=== PATIENT | male | born 1955 | race Caucasian/White ===

== ENCOUNTER 2020-10-03 15:42 | Outpatient (RCR) | payer OTHER, SELFPAY ==
--- NOTE | 2020-10-03 16:49 | HP.PTEVAL_ITS ---
Patient's Visit Information ALBERTO CASTILLO is a 64 year old M referred to Physical Therapy by Dr. Alvin Clayton DO with a diagnosis of cervical radiculopathy.. Date of Evaluation: 10/03/20 Physical Therapist: Derek Jimenez, DPT, OCS, CSCS - Visit Plan Frequency: 3x /Week Duration: 4-6 Weeks Plan: 3x/week for up to 4 weeks... 1. cervical retraction and ext exercises to reduce derangement with manual neck ROM and traction as needed adn ICT if needed. Progress to neck stretching adn strengthening of posture and neck as tolerated and acuity of pain improves. May use TENs with Mh if needed. - Subjective Started having weird tingling in fingers r hand and sporadic shoot pain in R side, that was a while ago. 2 weeks ago started with R shoulder and biceps pain. Saw doctor a week ago and started on oral steroids 2 days ago. he could not lift arm 2 days ago. but the steroid has helped. Does not like anything touching neck. Wakes up to terrible shooting pain in R UE. Today is better again with just some tingling in upper arm if he lifts it and numbness last two digits R UE. x rays shows degeneration at c6. Has not been real comfortable in about 3 weeks. Moving R UE makes him worse or touching neck. Standing and looking down is worse. 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 Crawls around alot. at work.Off work due to this. Basic ADLs are getting done now. 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 - Pain R upper arm Pain Intensity (Out of 10): 2 Pain Intensity Range: 0, 10 Comment: R neck. - Objective Posture is forward head and anterior shoulders. Tender to central c6 tissue pericervical area. reflexes 2/3 bi and tri. Sensation UE WNL to gross light touch. Strength UE 4+/5 except R triceps which is weak more due to pain than myotomal. cervical aROm ext 48, flexion full, rotation 55 L roations and 65 R rotation, SB symmetrical. Improved ext to 80 after session. Pain end range ext centrally. + c/s compressiont est in slight extension. Repeated motion: Tet: Baseline: Tightness R shoulder. protrusion. creates neck pain , P tingling and R shoulder pain. Worse. retraction: Produces neck pain during, improved ROM ext adn L rotation. retraction ext: - Goals Goal 1:: full cervical AROM without pain Goal Time Frame: 4-6 Weeks Goal 2:: Pt feel neck adn arm symptoms 90% better. Goal Time Frame: 4-6 Weeks Goal 3:: Back to normal activities without hesitation Goal Time Frame: 4-6 Weeks Goal 4:: oswestry neck 5 or better. Goal Time Frame: 4-6 Weeks - Rehabilitation Potential Physical Therapy Diagnosis: cervical radiculopathy Rehabilitation Potential: Fair - Anticipated Interventions Patient/Client Instruction: Educate patient on: Condition For the Purpose of:: To decrease pain, To increase ROM, To increase tolerance to activity/condition/position Therapeutic Exercise to Include: Strength training, Postural training, Flexibilty training, Passive ROM, Active ROM, Hanny Exercises For the Purpose of:: To decrease pain, To increase ROM, To improve muscle performance and motor function, To increase tolerance to activity/condition/p osition Manual Therapy Techniques to Include: Mobilization, Passive ROM, Soft tissue mobilization For the Purpose of:: To decrease pain, To increase ROM, To increase tolerance to activity/condition/position, To improve ability of physical actions for home/community/work/leisure TENS: Yes Thermo therapy (hot pack): Yes Intermittent cervical traction: Yes For the Purpose of:: To decrease pain, To increase ROM Thank you for the opportunity to evaluate your patient. For Medicare and Medicare HMO plans, please review the plan of care and approve it. It will need to be FAXED BACK to us at [phone] for Medicare purposes. For Medicare only, by signing this I certify the plan of care. Please let me know if there are questions or concerns regarding this plan of care. Physician Signature: Date:
--- NOTE | 2020-12-13 12:13 | HP.PTDCNRP_ITS ---
ALBERTO CASTILLO was seen in my office for initial evaluation on 10/03/20. The following Plan of Care was established for this patient: Initial Frequency: 3x /Week Initial Duration: 4-6 Weeks Patient/Client Instruction: Educate patient on: Condition For the Purpose of:: To decrease pain, To increase ROM, To increase tolerance to activity/condition/position Therapeutic Exercise to Include: Strength training, Postural training, Flexibilty training, Passive ROM, Active ROM, Hanny Exercises For the Purpose of:: To decrease pain, To increase ROM, To improve muscle performance and motor function, To increase tolerance to activ ity/condition/position Manual Therapy Techniques to Include: Mobilization, Passive ROM, Soft tissue mobilization For the Purpose of:: To decrease pain, To increase ROM, To increase tolerance to activity/condition/position, To improve ability of physical actions for home/community/work/leisure TENS: Yes Thermo therapy (hot pack): Yes Intermittent cervical traction: Yes For the Purpose of:: To decrease pain, To increase ROM This patient was last seen in our office 10/03/20. Pertinent comments regarding their Physical therapy will appear below: Pt seen one evaluationa dn plan of care established. He did not attend any of those visits. At this point, it has been over two months aadn I will discontinue due to nonattendance. At this point I will be discontinuing this patient from physical therapy. I would be happy to see this patient again in the future if found appropriate by the physician. Thank you! Derek Jimenez, DPT, OCS, CSCS Balance/Gait/Functional tests - Balance/Special Test Scores Oswestry Neck Score: 26
== END 2020-10-03 19:00 | disposition home or self-care (01) ==
LOC: PT 15:42
PROVIDERS: PCP Student in an Organized Health Care Education/Training Program; Referring Provider Student in an Organized Health Care Education/Training Program; Visit Provider Student in an Organized Health Care Education/Training Program
DX: M54.12 Radiculopathy, cervical region (principal)
CPT/HCPCS: 97110; 97162

== ENCOUNTER 2020-10-29 15:55 | Emergency (ER) | payer OTHER, SELFPAY ==
[2020-10-29] VITALS (7 sets, daily range): BP systolic 108–135; BP diastolic 62–78; PULSE 57–71; RESP 15–22; TEMP 36.7; O2SAT 96–98; BMI 28.9
--- NOTE | 2020-10-29 16:37 | EKG12_ITS ---
Test Reason : CP Blood Pressure : / mmHG Vent. Rate : 064 BPM Atrial Rate : 064 BPM P-R Int : 136 ms QRS Dur : 094 ms QT Int : 400 ms P-R-T Axes : 030 064 038 degrees QTc Int : 412 ms Normal sinus rhythm Normal ECG Confirmed by SHARI ZAPATA, KIKA ([id number]), staff editor FRED WHYTE ([id number]) on 11/01/2020 7:50:22 AM Referred By: TAVO/JUAN Confirmed By:KIKA MCCARTHY MD
--- NOTE | 2020-10-29 16:38 | EDS_ITS ---
HPI History of Present Illness Chief Complaint: Chest Pain Detail of Chief Complaint: Chest pain that started initially yesterday and was intermittent initially Informant: patient Onset/Context/Timing Onset: Yesterday Quality: Positive for Heaviness and Pressure Location: Substernal Relieved By: Nothing Associated Symptoms: Positive for Nausea Narrative Prior Similar Symptoms: No CVD Risk Factors: Positive for Hypertension and Family History 1' </=55 PE Risk Factors: Negative for Recent Travel/Surgery, Recent Immobilization and Prior DVT or PE TAD Risk Factors: Negative for Marfan's Syndrome, Hypertension and Family History PFSH PFS Medical History (Updated 10/29/20 @ 18:[address] Anna Montilla, DO) Back pain Coronary artery disease Hypertension Lyme disease Home Medications cyclobenzaprine 10 mg PO DAILY PRN PRN 02/27/14 [History Last Taken Unknown] dextroamphetamine-amphetamine [Adderall Xr 20 mg Capsule] 20 mg PO DAILY 02/27/14 [History Last Taken 02/26/14] meloxicam 15 mg PO BID PRN PRN 02/27/14 [History Last Taken Unknown] omega-3 fatty acids-fish oil [Jackson 3 Fish Oil Softgel] 1 ea PO DAILY 02/27/14 [History Last Taken Unknown] pediatric multivit 22-D3-vit K [Multivitamins Chewable Tablet] 1 ea PO DAILY 02/27/14 [History Last Taken Unknown] amlodipine 5 mg PO DAILY 10/29/20 [History Last Taken Unknown] gabapentin 100 mg PO QHS 10/29/20 [History Last Taken Unknown] Allergy/AdvReac Type Severity Reaction Status Date / Time Iodinated Contrast Media Allergy Hives Verified 10/29/20 15:56 Surgical History (Updated 10/29/20 @ 16:37 by Maira Galindo) History of cardiac catheterization Social History Smoking Status: Never smoker ROS ROS ED Review of Systems ROS Unobtainable: other Constitutional Constitutional ED: Reports lethargy; Denies chills, fever(s), sweats or weight loss Eyes Eyes: Denies blurry vision, change in vision or diplopia ENT ENT ED: Denies rhinorrhea or sore throat Cardiovascular Cardiovascular: Reports chest pain and racing heartbeat; Denies orthopnea Respiratory/Chest Respiratory/Chest: Reports dyspnea and dyspnea on exertion; Denies cough, orthopnea or sputum Gastrointestinal Gastrointestinal: Reports nausea; Denies abdominal pain, diarrhea or vomiting Genitourinary Genitourinary ED: Denies dysuria, hematuria or urinary frequency Musculoskeletal Musculoskeletal: Denies arthralgias, back pain, myalgias or neck pain Integumentary Denies abscess, Abrasions or rash Neurologic Neurologic: Denies headache(s) or weakness Psychiatric Psychiatric: Denies anxiety, depression or suicidal thoughts Endocrine Endocrinology: Denies polydipsia, polyphagia or polyuria Hematologic/Lymphatic Hematologic/Lymphatic: Denies easy bleeding, easy bruising or lymphadenopathy Allergic/Immunologic Allergic/Immunologic ED: Denies mouth swelling, tongue swelling or urticaria EXAM Physical Exam Const Vital Signs: 10/29/20 15:56 10/29/20 16:31 10/29/20 16:50 Temperature 98.1 F Temperature Source Temporal Pulse Rate 71 66 61 Respiratory Rate 15 17 Blood Pressure 135/69 H 132/62 H 133/78 H Blood Pressure Mean 91 85 Pulse Ox 97 98 Oxygen Delivery Method Room Air Room Air 10/29/20 16:51 10/29/20 16:55 10/29/20 16:59 Temperature Temperature Source Pulse Rate 68 71 Respiratory Rate Blood Pressure 133/74 H 111/69 Blood Pressure Mean Pulse Ox Oxygen Delivery Method Room Air 10/29/20 18:00 Temperature Temperature Source Pulse Rate 62 Respiratory Rate 20 H Blood Pressure 110/66 Blood Pressure Mean 80 Pulse Ox 96 Oxygen Delivery Method Room Air Positive well nourished and well developed General Appearance ED: well developed and NAD HEENT Reports TM's clear and moist mucous membranes normocephalic and atraumatic; Negative for trauma or tenderness Tympanic Membrane ED: Yes TM's clear Eyes PERRL and EOMs intact bilaterally General Eye ED: Negative for pale conjunctiva or scleral icterus Neck no lymphadenopathy, supple and no JVD General: Negative for tenderness Chest Wall inspection of chest normal and palpation of chest normal Chest: Negative for tenderness Resp normal respiratory effort and clear to auscultation bilaterally Effort and Inspection: Negative for respiratory distress or pain with movement Auscultation: Negative for rhonchi, wheezes or diminished lung sounds Cardio regular rate, regular rhythm, S1 normal heart sound, S2 normal heart sound and no murmurs Peripheral Pulses: pulses 2+ throughout GI normal to inspection, nondistended, normoactive bowel sounds, soft to palpation, non-tender, non-distended and no masses Back/Spine no CVA tenderness and no thoracic nor lumbar tenderness Extremity normal to inspection General Extremety ED: Negative for edema General Extremity: Negative for edema Neuro oriented x3, CN's II-XII intact bilaterally, no sensory deficits noted and gait normal Sensorium / Orientation: awake, alert, oriented to person, oriented to place and oriented to time Motor Exam: strength 5/5 throughout and strength abnormal Psych mental status grossly normal Skin no rashes or lesions noted and no wounds Heart Score History: Moderately Suspicious ECG: Normal Age: >45 - <65 years Risk Factors: 1 or 2 Risk Factors Troponin: </= Normal Limit Score: 3 MDM MDM MDM Narrative Medical decision making narrative: Discussed results with patient. He has a heart score of 3. Nitroglycerin did not help his pain and GI cocktail did not help his pain. He has had ongoing pain for greater than 24 hours and has a normal EKG and troponin. I feel patient is low risk for an acute coronary syndrome. Patient is in agreement. We discussed potentially admit him for stress testing however he does not feel like he wants to do that. He would prefer to return if symptoms should worsen in any way. Patient understands I cannot completely rule out coronary artery disease as etiology of his pain although his risk is low at this time. Lab Data Attestation: I reviewed the patient's lab results. Labs: Laboratory Results - last 24 hr 10/29/20 10/29/20 10/29/20 16:20 16:20 16:20 WBC 7.7 RBC 4.51 L Hgb 14.4 Hct 43.1 MCV 95.6 H MCH 31.9 MCHC 33.4 RDW Std Deviation 42.4 RDW Coeff of Mi 12.3 Plt Count 151 MPV 9.6 Immature Gran % (Auto) 0.300 Neut % (Auto) 65.9 Lymph % (Auto) 24.6 [place] % (Auto) 6.1 Eos % (Auto) 2.7 Baso % (Auto) 0.4 Absolute Neuts (auto) 5.1 Absolute Lymphs (auto) 1.89 Nucleated RBC % 0 D-Dimer Quant (PE/DVT) 0.32 Sodium 141 Potassium 3.7 Chloride 106 Carbon Dioxide 27.0 Anion Gap 8 BUN 30 H Creatinine 1.18 Estim Creat Clear Calc 75.47 Est GFR (MDRD) Af Amer 80 Est GFR (MDRD) Non-Af 66 BUN/Creatinine Ratio 25.4 H Glucose 162 H Calcium 8.6 Troponin I High Sens 3.3 Radiography Chest X-Ray - ED: 1 View Diagnostic Testing: Radiology Impression Chest X-Ray 10/29/20 16:45 IMPRESSION: Normal x-ray examination of the chest. Electronically Signed: Silvio Call MD at 16:56 EDT , Service support , 1 view chest x-ray obtained interpreted by myself as no acute disease process. EKG Initial EKG: Attestation: I personally reviewed and interpreted this EKG as follows: Comments: Sinus rhythm with a ventricular rate of 64 bpm with no acute ST segment changes. Prior EKG tracings: available for review Prior: Unchanged Discharge Plan Triage Chief Complaint: Chest Pain ED Provider: Anna Montilla Dx/Rx/DC Orders Clinical Impression: Chest pain of uncertain etiology Instructions: ED Chest Pain, Uncertain Cause Prescriptions: No Action meloxicam 15 MG tablet 15 mg PO BID PRN PRN (Reason: Pain) RF: 0 dextroamphetamine-amphetamine [Adderall XR] 20 MG capsule,extended release 24hr 20 mg PO DAILY RF: 0 cyclobenzaprine 10 MG tablet 10 mg PO DAILY PRN PRN (Reason: Muscle Spasm) RF: 0 One-Per-Day Jackson-3 1 EACH capsule,delayed release(DR/EC) 1 ea PO DAILY RF: 0 Chewable Multivit-A,B,D,E,K,Zn 1 EACH tablet,chewable 1 ea PO DAILY RF: 0 amlodipine 5 mg tablet 5 mg PO DAILY RF: 0 gabapentin 100 mg capsule 100 mg PO QHS RF: 0 Primary Care Provider: Alvin Clayton Referrals: Alvin Clayton DO [Primary Care Provider] - 3-5 Days Disposition Disposition: Home, Self Care
--- NOTE | 2020-10-29 16:45 | RAD_ITS ---
STUDY: X-RAY CHEST REASON FOR EXAM: Male, 64 years old. chest pain TECHNIQUE: Single AP portable view of the chest. COMPARISON: None. FINDINGS: The lungs are clear and expanded. There is no demonstrated pleural abnormality. Normal size heart. Normal mediastinum and jake. Normal visualized pulmonary arteries. Normal visualized aortic arch and descending thoracic aorta. Normal visualized thoracic spine. Normal visualized ribs, clavicles, and shoulders. There is no demonstrated abnormality of the visualized soft tissue structures of the upper abdomen. RAD/Chest 1 View (Portable) IMPRESSION: Normal x-ray examination of the chest. Electronically Signed: Silvio Call MD at 16:56 EDT , Service support ,
[2020-10-29] MEDS: Aspirin 81 MG TAB.CHEW 324 MG PO (16:50)
[2020-10-29] MEDS: Nitroglycerin SL (ED/IMG/CATH) 0.4 MG TABLET SL ×3 (16:50→16:59)
[2020-10-29] MEDS: 0.9% Normal Saline 1,000 ML 150 ML IV (16:50)
[2020-10-29 16:57] LABS: Absolute Lymphocyte Count 1.89 X10^3/uL (0.83-4.51); Absolute Neutrophil Count 5.1 X10^3/uL (2.0-7.7); Basophil# 0.03 X10^3/uL; Basophil% 0.4 % (0-1); Eosinophil# 0.21 X10^3/uL; Eosinophils% 2.7 % (0-5); Hematocrit 43.1 % (40-54); Hemoglobin 14.4 g/dL (13.0-16.5); Lymphocyte # 1.89 X10^3/ul (0.83-4.51); Lymphocyte % 24.6 % (19-41); Mean Corp Hgb Conc 33.4 g/dL (32-36); Mean Corpuscular Hgb 31.9 pg (27.0-32.0); Mean Corpuscular Volume 95.6 fL (80-94); Mean Platelet Vol. 9.6 fl (6.2-12.0); Monocyte# 0.47 X10^3/uL; Monocyte% 6.1 % (0-10); NRBC Flagged by Analyzer 0 % (0-5); Neutrophil # 5.05 X10^3/uL (2.7-7.7); Neutrophil % 65.9 % (47-70); Platelet Count 151 K/mm3 (150-450); RBC Distribution Width CV 12.3 % (11.6-14.6); RBC Distribution Width SD 42.4 fl (35.1-43.9); Red Blood Count 4.51 M/mm3 (4.6-6.2); White Blood Count 7.7 K/mm3 (4.4-11.0)
[2020-10-29 16:59] LABS: POSITIVE COUNT NO; POSITIVE DIFFERENTIAL NO; POSITIVE MORPHOLOGY NO
[2020-10-29 17:01] LABS: D-Dimer Quantitative (DVT/PE) 0.32 FEU/ug/m (0.27-0.49)
[2020-10-29 17:16] LABS: Anion Gap 8 (5-15); BUN 30 mg/dL (7-18); BUN/Creat Ratio 25.4 RATIO (10-20); Calcium,Total 8.6 mg/dL (8.5-10.1); Chloride 106 mmol/L (98-107); Creatinine, Serum 1.18 mg/dL (0.70-1.30); EST Glomerular Filtration Rate 66 mL/min (>60); Est Glom Filt Rate - Afr Amer 80 mL/min (>60); Estimated Creatinine Clearance 75.47 ml/min; Glucose 162 mg/dL (74-106); Potassium 3.7 mmol/L (3.5-5.1); Sodium Level 141 mmol/L (136-145); Troponin-I HS 3.3 pg/mL (3.0-78.5)
[2020-10-29] MEDS: Mag Hydrox/Al Hydrox/Simeth 30 ML UDC PO (17:58)
== END 2020-10-29 18:36 | disposition home or self-care (01) ==
PROVIDERS: Emergency Provider Emergency Medicine; PCP Student in an Organized Health Care Education/Training Program
DX: R07.9 Chest pain, unspecified (principal); I25.10 Atherosclerotic heart disease of native coronary artery without angina pectoris; Z79.899 Other long term (current) drug therapy
CPT/HCPCS: 71045; 80048; 84484; 85025; 85379; 93005; 96360; 96361; 99285; J7030; A4216

== ENCOUNTER 2022-12-04 21:31 | Emergency (ER) | payer OTHER, MEDICARE, SELFPAY ==
[2022-12-04 21:33] VITALS: BP 170/86; PULSE 70; RESP 24; TEMP 36.4; O2SAT 97; BMI 29.1
--- NOTE | 2022-12-04 21:51 | CT_ITS ---
STUDY: CT ABDOMEN AND PELVIS WITHOUT CONTRAST REASON FOR EXAM: Male, 67 years old. pain RADIATION DOSAGE (If Supplied By Facility): CTDIvol = ( 9.98 ) mGy, DLP = ( 556.13 ) mGycm TECHNIQUE: Transaxial images were obtained from the dome of the diaphragm to the symphysis pubis without oral contrast, and without intravenous contrast. Sagittal and coronal images were reconstructed. Individualized dose optimization techniques were used for this CT. COMPARISON: None. FINDINGS: The visualized lung bases are unremarkable. The visualized portions of the heart are within normal limits. Normal liver. Normal gallbladder and extrahepatic biliary system. There is mild splenomegaly. Normal pancreas. Normal bilateral adrenal glands. 2 mm obstructing stone at the right ureterovesical junction with mild ureteral dilatation, hydronephrosis, and perinephric edema. Normal left kidney. Normal visualized stomach. Normal small intestine. Normal colon. The appendix is visualized and appears normal. Normal abdominal aorta. Normal inferior vena cava. Normal retroperitoneum. Normal urinary bladder. Normal abdominal wall. There are diffuse degenerative changes of the visualized lumbar spine. CT/Abdomen/Pelvis without Cont IMPRESSION: 2 mm obstructing stone at the right ureterovesical junction with mild ureteral dilatation, hydronephrosis, and perinephric edema. Electronically Signed: Dilip Ordonez MD at 23:07 EDT ,
[2022-12-04] MEDS: Ondansetron 4 MG/2 ML Vial IV (21:56)
[2022-12-04] MEDS: Ketorolac 15 MG/ML Vial IV (21:56)
[2022-12-04] MEDS: Morphine 4 MG/ML Syringe IV (21:56)
[2022-12-04] MEDS: 0.9% Normal Saline 1,000 ML 1000 ML IV (22:00)
[2022-12-04 22:09] LABS: Absolute Lymphocyte Count 3.27 X10^3/uL (0.83-4.51); Absolute Neutrophil Count 6.2 X10^3/uL (2.0-7.7); Basophil# 0.06 X10^3/uL; Basophil% 0.6 % (0-1); Eosinophil# 0.43 X10^3/uL; Eosinophils% 4.1 % (0-5); Hematocrit 44.2 % (40-54); Hemoglobin 15.1 g/dL (13.0-16.5); Lymphocyte # 3.27 X10^3/ul (0.83-4.51); Lymphocyte % 31.1 % (19-41); Mean Corp Hgb Conc 34.2 g/dL (32-36); Mean Corpuscular Hgb 31.6 pg (27.0-32.0); Mean Corpuscular Volume 92.5 fL (80-94); Mean Platelet Vol. 9.8 fl (6.2-12.0); Monocyte# 0.56 X10^3/uL; Monocyte% 5.3 % (0-10); NRBC Flagged by Analyzer 0 % (0-5); Neutrophil # 6.18 X10^3/uL (2.7-7.7); Neutrophil % 58.6 % (47-70); Platelet Count 178 K/mm3 (150-450); RBC Distribution Width CV 11.6 % (11.6-14.6); RBC Distribution Width SD 39.4 fl (35.1-43.9); Red Blood Count 4.78 M/mm3 (4.6-6.2); White Blood Count 10.5 K/mm3 (4.4-11.0)
--- NOTE | 2022-12-04 22:46 | EX.ED.DYSGE1 ---
HPI History of Present Illness Chief Complaint: Flank Pain Informant: patient Onset/Context/Timing Onset: Today Context: Sudden Onset Timing: Waxes and wanes Current Severity: Moderate Maximum Severity: Severe Narrative Narrative: Patient presents with right-sided abdominal pain that started rather abruptly around 8 PM this evening. He states he worked all day and felt fine. He points just to the right of the umbilicus and describing the area of pain. He does have some pain that radiates down to the groin. He has had some nausea and dry heaves. He denies urinary symptoms. PFSH [facility] Medical History Back pain Coronary artery disease Hypertension Lyme disease Home Medications omega-3 fatty acids-fish oil 684 mg-1,200 mg capsule,delayed release (One-Per-Day Connelly-3) 1 ea PO DAILY 02/27/14 [History Last Taken Unknown] pediatric multivit 22-vit D3 1,000 unit-vit K 800 mcg chewable tablet (Chewables Multivitamins-A,B,D,E,K,Zn) 1 ea PO DAILY 02/27/14 [History Last Taken Unknown] amlodipine 5 mg tablet 5 mg PO DAILY 10/29/20 [History Last Taken Unknown] hydrocodone-acetaminophen 5-325mg 5mg-325mg 1 tab PO Q6H PRN PRN Pain 3 days #12 TABLETS 12/04/22 [Rx Last Taken Unknown] ondansetron 4 mg disintegrating tablet 4 mg PO Q8H PRN PRN Nausea #10 tabs 12/04/22 [Rx Last Taken Unknown] tamsulosin 0.4 mg capsule (Flomax) 0.4 mg PO DAILY #7 caps 12/04/22 [Rx Last Taken Unknown] Allergy/AdvReac Type Severity Reaction Status Date / Time Iodinated Contrast Media Allergy Hives Verified 12/04/22 21:33 Surgical History History of cardiac catheterization Hx of tonsillectomy Social History Smoking Status: Never smoker ROS ROS ED Constitutional Constitutional ED: Denies chills or fever(s) Eyes Eyes: Denies change in vision ENT ENT ED: Denies rhinorrhea or sore throat Cardiovascular Cardiovascular: Denies chest pain or palpitations Respiratory/Chest Respiratory/Chest: Denies cough or dyspnea Gastrointestinal Gastrointestinal: Reports abdominal pain, nausea and vomiting; Denies diarrhea Genitourinary Genitourinary ED: Denies difficulty urinating or dysuria Musculoskeletal Musculoskeletal: Denies back pain or extremity pain Integumentary Denies Abrasions or rash Neurologic Neurologic: Denies headache(s) or weakness Psychiatric Psychiatric: Denies anxiety or depression Allergic/Immunologic Allergic/Immunologic ED: Denies lip swelling or urticaria EXAM Physical Exam Const Vital Signs: 12/04/22 21:33 Temperature 97.5 F L Temperature Source Oral Pulse Rate 70 Respiratory Rate 24 H Blood Pressure 170/86 H Blood Pressure Mean 114 Pulse Ox 97 Oxygen Delivery Method Room Air Positive well nourished and well developed General Appearance ED: well developed HEENT Reports normocephalic and head/scalp atraumatic Eyes PERRL and EOMs intact bilaterally Neck supple Chest Wall inspection of chest normal and palpation of chest normal Resp normal respiratory effort and clear to auscultation bilaterally Cardio regular rate and regular rhythm GI GI Narrative: Moderate tenderness to the right lower quadrant. No guarding or rebound. Hypoactive bowel sounds Palpation: soft Extremity normal to inspection Neuro oriented x3 and no sensory deficits noted Sensorium / Orientation: alert Motor Exam: strength 5/5 throughout Psych Mood & Affect: anxious Skin no rashes or lesions noted MDM MDM MDM Narrative Medical decision making narrative: Patient treated with morphine, Toradol, Zofran, IV fluids. Labwork obtained to evaluate for leukocytosis, anemia, and electrolyte derangement. Urinalysis obtained to evaluate for infection/hematuria. CT flank obtained to evaluate for possible kidney stone. Lab Data Attestation: I reviewed the patient's lab results. Labs: Laboratory Results - last 24 hr 12/04/22 12/04/22 12/04/22 21:50 23:15 23:35 WBC 10.5 RBC 4.78 Hgb 15.1 Hct 44.2 MCV 92.5 MCH 31.6 MCHC 34.2 RDW Std Deviation 39.4 RDW Coeff of Mi 11.6 Plt Count 178 MPV 9.8 Immature Gran % (Auto) 0.300 Neut % (Auto) 58.6 Lymph % (Auto) 31.1 [place] % (Auto) 5.3 Eos % (Auto) 4.1 Baso % (Auto) 0.6 Absolute Neuts (auto) 6.2 Absolute Lymphs (auto) 3.27 Nucleated RBC % 0 Sodium 142 Potassium 3.6 Chloride 109 H Carbon Dioxide 21.0 Anion Gap 12 BUN 34 H Creatinine 1.75 H Estim Creat Clear Calc 48.93 Est GFR (MDRD) Af Amer 51 L Est GFR (MDRD) Non-Af 42 L BUN/Creatinine Ratio 19.4 Glucose 132 H Calcium 9.4 Total Bilirubin 0.90 Direct Bilirubin 0.26 AST 24 ALT 35 Alkaline Phosphatase 97 Total Protein 7.3 Albumin 4.4 Globulin 2.9 Urine Color Cancelled Yellow Urine Clarity Cancelled Clear Urine pH Cancelled 6.0 Ur Specific [place] Cancelled 1.020 U Specif Grav (Refrac) Cancelled Urine Protein Cancelled 30 H Urine Glucose (UA) Cancelled Normal Urine Ketones Cancelled 15 H Urine Occult Blood Cancelled 50 H Urine Nitrite Cancelled Negative Urine Bilirubin Cancelled Negative Urine Urobilinogen Cancelled 1 H Ur Leukocyte Esterase Cancelled 25 H Urine RBC Cancelled 0-5 SEEN Urine WBC Cancelled 0-5 SEEN Ur Squamous Epith Cells Cancelled 0 SEEN Ur Transition Epith Cell Cancelled Ur Renal Epithelial Cell Cancelled Calcium Oxalate Crystal Cancelled RARE Uric Acid Crystals Cancelled Triple Phos Crystals Cancelled Other Crystals Cancelled Amorphous Sediment Cancelled Urine Bacteria Cancelled RARE Hyaline Casts Cancelled Fine Granular Casts Cancelled Coarse Granular Casts Cancelled Waxy Casts Cancelled RBC Casts Cancelled WBC Casts Cancelled Urine Mucus Cancelled 0 SEEN Urine Trichomonas Cancelled Urine Yeast Cancelled Radiography Diagnostic Testing: Clinical Impression(s) from Imaging Studies Abdomen/Pelvis CT 12/04/22 21:51 IMPRESSION: 2 mm obstructing stone at the right ureterovesical junction with mild ureteral dilatation, hydronephrosis, and perinephric edema. Electronically Signed: Dilip Ordonez MD at 23:07 EDT , Treatment and Re-Evaluation :: CBC was normal white count 10.5 with hemoglobin of 15.1. Chemistry studies reveal a BUN of 34 and a creatinine 1.75. This is compared to a creatinine of 1.18 two years ago. LFTs are unremarkable. CT flank reveals a 2 mm obstructing stone at the right UVJ with mild hydronephrosis. On repeat evaluation patient's pain is improved, although he just ambulated to the restroom and states any movement such as walking makes his pain worse. He will be given another small dose of analgesics now. Urine will be evaluated for possible infection. Prescriptions for analgesics and antiemetics will be sent to the pharmacy for him. Urinalysis reveals blood but no sign of infection. Patient discharged home with meds and referral to Dr. Mack as needed Discharge Plan Triage Chief Complaint: Flank Pain ED Provider: Jackie Brock Dx/Rx/DC Orders Clinical Impression: Ureterolithiasis Instructions: ED Kidney Stone w/ Colic Prescriptions: New hydrocodone-acetaminophen 5-325 mg tablet 1 tab PO Q6H PRN PRN (Reason: Pain) 3 Days Qty: 12 0RF ondansetron 4 mg tablet,disintegrating 4 mg PO Q8H PRN PRN (Reason: Nausea) Qty: 10 0RF tamsulosin [Flomax] 0.4 mg capsule 0.4 mg PO DAILY Qty: 7 0RF No Action One-Per-Day Connelly-3 1 EACH capsule,delayed release(DR/EC) 1 ea PO DAILY Chewable Multivit-A,B,D,E,K,Zn 1 EACH tablet,chewable 1 ea PO DAILY amlodipine 5 mg tablet 5 mg PO DAILY Primary Care Provider: Alvin Clayton Referrals: Erick Mack MD [Med Staff - Active Staff] - 3-5 Days if not improving Alvin Clayton DO [Primary Care Provider] - Disposition Disposition: Home, Self Care
[2022-12-04 22:51] LABS: AST(SGOT) 24 U/L (15-37); Alanine Aminotransfer ALT/SGPT 35 U/L (16-61); Albumin, Serum 4.4 g/dL (3.2-5.0); Alkaline Phosphatase 97 U/L (45-117); Anion Gap 12 (5-15); BUN 34 mg/dL (7-18); BUN/Creat Ratio 19.4 RATIO (10-20); Bilirubin, Direct 0.26 mg/dL (0.00-0.30); Calcium,Total 9.4 mg/dL (8.5-10.1); Chloride 109 mmol/L (98-107); Creatinine, Serum 1.75 mg/dL (0.70-1.30); EST Glomerular Filtration Rate 42 mL/min (>60); Est Glom Filt Rate - Afr Amer 51 mL/min (>60); Estimated Creatinine Clearance 48.93 ml/min; Globulin 2.9 g/dL (2.2-4.2); Glucose 132 mg/dL (74-106); Potassium 3.6 mmol/L (3.5-5.1); Protein, Total 7.3 g/dL (6.4-8.2); Sodium Level 142 mmol/L (136-145)
[2022-12-04 23:46] LABS: Mucous, Urine 0 SEEN /hpf (<or=2+); Squamous Epithelial Cells - UA 0 SEEN /hpf (0-5)
[2022-12-04] MEDS: HYDROmorphone 0.5 MG/0.5 ML SYRINGE IV (23:46)
[2022-12-04] MEDS: 0.9% Normal Saline 1,000 ML 150 ML IV (23:46)
[2022-12-04 23:47] LABS: Color, Urine Yellow (Yellow); Glucose, Dipstick Normal (Normal); Ketone-Dipstick 15 mg/dl (Negative); Leukocyte Esterase-Dipstick 25 /ul (Negative); Nitrite-Dipstick Negative (Negative); Occult Blood-Urine 50 /ul (Negative); Protein-Dipstick 30 mg/dl (Negative); Urine Bilirubin Dipstick Negative (Negative); Urine Clarity Clear (Clear); Urine Urobilinogen 1 mg/dl (Normal)
[2022-12-04 23:56] LABS: Bacteria RARE /hpf (None Seen); Calcium Oxalate Crystals Ur RARE /hpf (<or=2+); Red Blood Cells-Urine 0-5 SEEN /hpf (0-5); White Blood Cells 0-5 SEEN /hpf (0-5)
[2022-12-05] MEDS: Tamsulosin HCl 0.4 MG Capsule PO (00:10)
[2022-12-05 00:11] VITALS: BP 160/84; BP 160/86; PULSE 61; RESP 18; O2SAT 98
[2022-12-05] MEDS: HYDROmorphone 0.5 MG/0.5 ML SYRINGE IV (00:54)
== END 2022-12-05 01:07 | disposition home or self-care (01) ==
PROVIDERS: Emergency Provider Emergency Medicine; PCP Student in an Organized Health Care Education/Training Program; Visit Provider Emergency Medicine
DX: N13.2 Hydronephrosis with renal and ureteral calculous obstruction (principal); I25.10 Atherosclerotic heart disease of native coronary artery without angina pectoris; I10 Essential (primary) hypertension
CPT/HCPCS: 74176; 80048; 80076; 81001; 85025; 96361; 96374; 96375; 96376; 99284; J7030; A4216; J2405